=== PATIENT | male | born 1985 | race Caucasian/White ===

== ENCOUNTER 2021-03-15 14:28 | Outpatient (REF) | payer OTHER, SELFPAY ==
[2021-03-15 15:46] LABS: COVID-19 Test Negative (Negative)
== END 2021-03-15 14:29 | disposition home or self-care (01) ==
LOC: HO.LAB 14:28
PROVIDERS: Visit Provider Internal Medicine
DX: Z20.822 Contact with and (suspected) exposure to COVID-19 (principal)
CPT/HCPCS: 36415; 87635; C9803

== ENCOUNTER → 2022-08-20 13:01 | Outpatient (BNVA) | payer OTHER, SELFPAY | PROVIDERS: Visit Provider Physician Assistant Medical | DX: T15.02XA Foreign body in cornea, left eye, initial encounter (principal); W45.8XXA Other foreign body or object entering through skin, initial encounter | CPT/HCPCS: 99202 ==

== ENCOUNTER 2023-08-16 10:25 | Emergency (ER) | payer SELFPAY ==
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
[2023-08-16 10:42] VITALS: BP 170/88; PULSE 95; RESP 18; TEMP 36.8; O2SAT 97; BMI 39.2
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
[2023-08-16] MEDS: Lidocaine HCl 1%/Epi 1:100,000 10 ML VIAL INFILTRATI (11:39)
[2023-08-16] MEDS: Acetaminophen 325 MG TABLET 975 MG PO (11:39)
[2023-08-16] MEDS: Bacitracin Oint 0.9 GM PACKET 1 APPL TOPICAL (13:32)
[2023-08-16] MEDS: Amoxicillin/Potassium Clav 875 MG TABLET PO (14:14)
== END 2023-08-16 14:29 | disposition home or self-care (01) ==
PROVIDERS: Emergency Provider Emergency Medicine
DX: S01.81XA Laceration without foreign body of other part of head, initial encounter (principal); S09.8XXA Other specified injuries of head, initial encounter; Y00.XXXA Assault by blunt object, initial encounter; Y93.89 Activity, other specified; Y92.9 Unspecified place or not applicable; Y99.9 Unspecified external cause status; R51.9 Headache, unspecified; Z65.3 Problems related to other legal circumstances
CPT/HCPCS: 12013; 70450; 70486; 72125; 99283; 99284